=== PATIENT | female | born 1960 | race Caucasian/White ===

== ENCOUNTER 2023-09-01 15:11 | Emergency (ER) | payer MEDICAID, SELFPAY ==
--- NOTE | ~2023-09-01 | US_ITS ---
EXAMINATION: US VENOUS ULTRASOUND WITH DOPPLER LOWER EXTREMITY, BILATERAL CLINICAL INFORMATION: Pain COMPARISON: None available. TECHNIQUE: Ultrasound of the deep veins is performed from the hip to the calf with compression sonography and color and pulse Doppler assessment. Spectral analysis with color-flow imaging is performed. FINDINGS: RIGHT: There is normal venous compression and respiratory variation and augmented flow. The visualized common femoral vein, superficial femoral vein, profunda femoral vein, popliteal vein, and the trifurcation region shows no evidence of deep venous thrombosis. There is no significant popliteal fossa cyst. LEFT: There is normal venous compression and respiratory variation and augmented flow. The visualized common femoral vein, superficial femoral vein, profunda femoral vein, popliteal vein, and the trifurcation region shows no evidence of deep venous thrombosis. There is no significant popliteal fossa cyst. US/US venous duplex LE IMPRESSION: No DVT demonstrated in the lower extremity.
[2023-09-01 15:30] VITALS: BP 113/80; PULSE 77; RESP 18; TEMP 36.6; O2SAT 92; BMI 41.7
--- NOTE | 2023-09-01 15:30 | ED.GENADULT ---
HPI - General Adult General Chief complaint: Extremity Injury, Lower Stated complaint: home nurse suggested have calfs xrayed/blood clot? Time Seen by Provider: 09/01/23 17:19 Source: patient Mode of arrival: ambulatory Limitations: no limitations History of Present Illness ED Provider: Dr. Roopa Nicolas HPI narrative: Patient comes to the emergency room complaining of bilateral calf pain and swelling. Patient states that her visiting nurse asked her to come to the emergency room to rule out DVTs. Patient has no history of DVTs or PEs, patient does not take blood thinners. Patient denies chest pain or shortness of breath. No palpitations. Related Data Allergies Allergy/AdvReac Type Severity Reaction Status Date / Time No Known Allergies Allergy Verified 09/01/23 15:31 Review of Systems Review of Systems: Constitutional : No Weight loss, No Fever, No Chills, No Night Sweats, No Fatigue, No Malaise ENT/Mouth : No Hearing loss, No Ear Pain, No Nasal Congestion, No Sinus Pain, No Hoarseness, No sore throat, No Rhinorrhea, No Swallowing Difficulty Eyes: No Eye Pain, No Swelling, No Redness, No Foreign Body, No Discharge, No Vision Changes Cardiovascular : No Chest Pain, No SOB, No Dyspnea on Exertion, No Orthopnea, No Edema, No Palpitations Respiratory : No Cough, No Sputum, No Wheezing, No Smoke Exposure, No Dyspnea Gastrointestinal : No Nausea, No Vomiting, No Diarrhea, No Constipation, No abdominal Pain, No Hematochezia, No Melena Genitourinary : no irregular bleeding, No Dysuria, No Urinary Frequency, No Hematuria, No Urinary Incontinence, No Urgency, No Flank Pain, No Urinary Flow Changes, No Hesitancy Musculoskeletal : Complaining of bilateral calf pain and swelling Skin : No Skin Lesions, No rash Neuro : No Weakness, No Numbness, No Paresthesias, No Loss of Consciousness, No Dizziness, No Headache Psych : No Anxiety/Panic, No Depression, No SI/HI/AH/VH, No Social Issues, Heme/Lymph: No Bruising, No Bleeding,No Lymphadenopathy Endocrine : No Polyuria, No Polydipsia, No Temperature Intolerance PMFSH Social History Social History Advance Directives: No Advance Directives Information Provided: No Do you have a plan to hurt others: No Plan Physical Exam ED Vital Signs: Vital Signs - 24 hr 09/01/23 15:30 Temperature 97.8 F Pulse Rate 77 Respiratory Rate 18 Blood Pressure 113/80 Pulse Oximetry 92 Oxygen Delivery Method Room Air BMI result Body Mass Index 41.7 Const Other: Appearance: Alert. Oriented X3. No acute distress. Eyes: Pupils equal, round and reactive to light. ENT: Pharynx normal. Neck: Normal inspection. Neck supple. No lymph nodes noted. No crepitus CVS: Normal heart rate and rhythm. Pulses normal. Normal S1 and S2 Respiratory: No respiratory distress. Breath sounds normal. No Wheezing. No rales Abdomen: Soft and nontender. No rigidity. No distention. Skin: Skin warm and dry. Normal skin color. Normal skin turgor. Extremities: No lower extremity edema. Complaining of pain to palpation in both calves No Lacerations. No Rash Neuro: Oriented X 3. No motor deficit. No sensory deficit. Moving all extremities. No slurred speech. CN 2 through 12 grossly intact Psych: calm, cooperative, normal affect Course Course Course Narrative: RME performed by Marjan Howard PA-C. Patient is a 62 year old assigned female at presenting to the emergency department with bilateral lower leg swelling. Patient states that her visiting nurse saw her and recommended she get them imaged. Detailed physical exam and review of systems are deferred to the personal lines advisor. Labs and imaging ordered. Patient placed back in the waiting room pending room availability and results. Medical Decision Making Medical Decision Making [facility] Narrative: -on physical exam, patient's lower extremities are not swollen. -ultrasound negative for DVT. Patient likely having venous insufficiency, no pitting edema. Patient instructed to follow-up with her primary care physician. Differential Diagnosis Differential Diagnoses: The differential diagnosis associated with the presentation includes (Cramps, musculoskeletal pain, DVTs, venous insufficiency) Lab Data [facility] Lab Attestation statement: I reviewed the patient's lab results. 09/01/23 16:24 09/01/23 16:24 Labs: Lab Results 09/01/23 Range/Units 16:24 WBC 7.1 (4.8-10.8) X10*3/uL RBC 4.16 L (4.20-5.50) X10*6/uL Hgb 11.9 L (12.0-16.0) g/dl Hct 36.0 L (37.0-47.0) % MCV 86.5 (80.0-98.0) fL MCH 28.6 (27.0-33.0) pg MCHC 33.1 (31.0-35.0) g/dl RDW 14.0 (11.0-16.0) % Plt Count 277 (160-400) X10*3/uL MPV 9.1 L (9.4-12.3) fL Immature Gran % (Auto) 0.3 (0.0-0.4) % Neut % (Auto) 71.9 (45-73) % Lymph % (Auto) 16.7 L (20-40) % [place] % (Auto) 7.8 (2-11) % Eos % (Auto) 2.7 (0-4) % Baso % (Auto) 0.6 (0-2) % Lymph # (Auto) 1.2 (1.2-4.9) X10*3/uL [place] # (Auto) 0.6 (0.1-1.2) X10*3/uL Eos # (Auto) 0.2 (0.0-0.4) X10*3/uL Baso # (Auto) 0.0 (0.0-0.2) X10*3/uL Abs Immat Gran (auto) 0.02 (0.00-0.03) X10*3/uL Absolute Neuts (auto) 5.1 (2.0-8.3) x10*3/uL Absolute Nucleated RBC 0.000 (0.0-0.012) X10*3/uL Nucleated RBC % (auto) 0.0 (0.0-0.2) /100WBC ESR 13 (0-20) MM/HR PT 11.4 (11.1-13.3) SEC INR 0.9 (0.9-1.1) APTT 31.2 (26.0-36.8) SEC Sodium 143 (135-145) mmol/L Potassium 3.9 (3.3-5.1) mmol/L Chloride 108 (96-108) mmol/L Carbon Dioxide 28 (22-29) mmol/L Anion Gap 11 L (12-20) BUN 12 (9-16) mg/dL Creatinine 0.71 (0.5-1.4) mg/dL Estim Creat Clear Calc 91.5 Estimated GFR > 60 Random Glucose 87 (60-115) mg/dL Calcium 9.1 (8.4-10.2) mg/dL Total Bilirubin 0.2 (0.0-1.0) mg/dL AST 18 (5-31) U/L ALT 14 (0-31) U/L Alkaline Phosphatase 65 (39-117) U/L C-Reactive Protein 3.47 H (< or = 0.50) mg/dL B-Natriuretic Peptide 94 (<100) pg/mL Total Protein 6.6 (6.5-8.0) g/dL Albumin 4.0 (3.5-5.0) g/dL Independent Interpretation I performed an independent interpretation of an: Ultrasound Radiology Impression Discussion of test interpretation with radiology: I have reviewed the radiologist's reading. Radiologist Impression: FINDINGS: RIGHT: There is normal venous compression and respiratory variation and augmented flow. The visualized common femoral vein, superficial femoral vein, profunda femoral vein, popliteal vein, and the trifurcation region shows no evidence of deep venous thrombosis. There is no significant popliteal fossa cyst. LEFT: There is normal venous compression and respiratory variation and augmented flow. The visualized common femoral vein, superficial femoral vein, profunda femoral vein, popliteal vein, and the trifurcation region shows no evidence of deep venous thrombosis. There is no significant popliteal fossa cyst. US/US venous duplex LE BI IMPRESSION: No DVT demonstrated in the lower extremity. Discharge Plan Discharge Clinical Impression: Bilateral leg pain Patient Disposition: Home, Self-Care Instructions: Leg Pain (ED) Additional Instructions: Please follow-up with your primary care physician tomorrow. If you have any worsening or new symptoms, please return to the emergency room or call [phone] Print Language: [place]er
[2023-09-01 16:33] LABS: MANUAL DIFF FLAG NO
[2023-09-01 16:36] LABS: Basophils Percent Auto 0.6 % (0-2); Eosinophils Absolute Auto 0.2 X10*3/uL (0.0-0.4); Eosinophils Percent Auto 2.7 % (0-4); Hemoglobin 11.9 g/dl (12.0-16.0); Imm Gran Abs Auto 0.02 X10*3/uL (0.00-0.03); Imm Gran Pct Auto 0.3 % (0.0-0.4); Lymphocytes Absolute Auto 1.2 X10*3/uL (1.2-4.9); Lymphocytes Percent Auto 16.7 % (20-40); Mean Corpuscular HGB Conc 33.1 g/dl (31.0-35.0); Mean Corpuscular Hemoglobin 28.6 pg (27.0-33.0); Mean Corpuscular Volume 86.5 fL (80.0-98.0); Mean Platelet Volume 9.1 fL (9.4-12.3); Monocytes Absolute Auto 0.6 X10*3/uL (0.1-1.2); Monocytes Percent Auto 7.8 % (2-11); Neutrophils Absolute Auto 5.1 x10*3/uL (2.0-8.3); Neutrophils Percent Auto 71.9 % (45-73); Platelet Count 277 X10*3/uL (160-400); Red Blood Count 4.16 X10*6/uL (4.20-5.50); White Blood Count 7.1 X10*3/uL (4.8-10.8)
[2023-09-01 16:48] LABS: Alanine Aminotransferase 14 U/L (0-31); Alkaline Phosphatase 65 U/L (39-117); Anion Gap 11 (12-20); Aspartate Amino Transferase 18 U/L (5-31); Bilirubin Total 0.2 mg/dL (0.0-1.0); Blood Urea Nitrogen 12 mg/dL (9-16); C Reactive Protein 3.47 mg/dL (< or = 0.50); Calcium 9.1 mg/dL (8.4-10.2); Carbon Dioxide 28 mmol/L (22-29); Chloride 108 mmol/L (96-108); Creatinine Clr Calc Pharmacy 91.5; Estimated Glomerular Filt Rate > 60; Glucose Random 87 mg/dL (60-115); Potassium 3.9 mmol/L (3.3-5.1); Sodium 143 mmol/L (135-145); Total Protein 6.6 g/dL (6.5-8.0)
[2023-09-01 16:49] LABS: INTERNATIONAL NORM RATIO 0.9 (0.9-1.1); Prothrombin Time 11.4 SEC (11.1-13.3)
[2023-09-01 16:51] LABS: Partial Thromboplastin Time 31.2 SEC (26.0-36.8)
[2023-09-01 16:55] LABS: B Type Natriuretic Peptide 94 pg/mL (<100)
[2023-09-01 17:21] LABS: Erythrocyte Sedimentation Rate 13 MM/HR (0-20)
[2023-09-01 19:18] VITALS: BP 143/80; PULSE 69; RESP 16; TEMP 36.6; O2SAT 96
== END 2023-09-01 19:15 | disposition home or self-care (01) ==
PROVIDERS: Physician Assistant Medical; Emergency Provider Emergency Medicine; PCP Internal Medicine
DX: M79.605 Pain in left leg (principal); M79.604 Pain in right leg; M79.89 Other specified soft tissue disorders
CPT/HCPCS: 36415; 80053; 83880; 85025; 85610; 85652; 85730; 86140; 93970; 99284

== ENCOUNTER 2025-02-15 09:32 | Outpatient (REF) | payer MEDICAID, SELFPAY ==
[2025-02-15 09:52] LABS: MANUAL DIFF FLAG NO
[2025-02-15 10:14] LABS: Hematocrit 41.1 % (37.0-47.0); Hemoglobin 13.0 g/dl (12.0-16.0); Imm Gran Abs Auto 0.06 X10*3/uL (0.00-0.03); Imm Gran Pct Auto 0.6 % (0.0-0.4); Lymphocytes Absolute Auto 1.9 X10*3/uL (1.2-4.9); Mean Corpuscular HGB Conc 31.6 g/dl (31.0-35.0); Mean Corpuscular Hemoglobin 28.0 pg (27.0-33.0); Mean Corpuscular Volume 88.4 fL (80.0-98.0); NRBC Abs Auto 0.000 X10*3/uL (0.0-0.012); NRBC Pct Auto 0.0 /100WBC (0.0-0.2); Platelet Count 323 X10*3/uL (160-400); Red Blood Count 4.65 X10*6/uL (4.20-5.50); White Blood Count 9.2 X10*3/uL (4.8-10.8)
--- OUTSIDE RECORDS SUMMARY | 2025-02-15 10:46 | XMS_ITS | Clinical Summary ---
Author Organization [facility] Address [address] [place] [address] Phone Care Team Providers Care Supervisor Trust Accounts Name Role Phone Wolfgang Hopper MD Primary Care Provider Social History Tobacco Use Types Packs/Day Years Used Date Smoking Tobacco: Never Assessed Comments No Sex and Gender Information Value Date Recorded Sex Assigned at Not on file Legal Sex Female 1:18 PM EST Gender Identity Not on file Sexual Orientation Not on file Obstetrics History Para Term AB IAB SAB Ectopic Multiple Livin g Live Births 1 Last Filed Vital Signs Vital Sign Reading Time Taken Comments Blood Pressure - - Pulse - - Temperature - - Respiratory Rate - - Oxygen Saturation - - Inhaled Oxygen Concentration - - Weight 98.4 kg (217 lb) 05/10/2024 2:42 PM EST Height 157.5 cm (5' 2 ) 05/10/2024 2:42 PM EST Body Mass Index 39.69 05/10/2024 2:42 PM EST Plan of Treatment Health Maintenance Due Date Last Done Comments Colorectal Cancer Screening: Colonoscopy 1960 Cervical Cancer Screening: Pap Smear 11/29/1980 Pneumococcal Vaccine: 50+ Years (1 of 1 - PCV) 11/29/2009 Zoster Vaccines (1 of 2) 11/29/2009 Hepatitis C Screening 03/04/2022 Osteoporosis Screening (Bone Density Screening) 03/04/2022 Social Influencers of Health Screening 03/04/2022 Depression Screening 04/06/2024 Falls Risk Assessment 11/29/2024 COVID-19 Vaccine ( season) 2024 01/14/2024, 04/29/2022, 04/25/2021, Additional history exists Influenza Vaccine (#1) 2024 , 12/16/2022, 01/02/2022, Additional history exists Breast Cancer Screening 05/10/2026 05/10/19, 05/05/2023, 05/02/2022, Additional history exists DTaP,Tdap,and Td Vaccines (2 - Td or Tdap) 04/20/2030 04/20/2020 RSV Immunization Adult Patients (1 - 1-dose 75+ series) 11/29/2034 HIB Vaccines Aged Out No longer eligi ble based on patient's age to complete this topic HPV Vaccines Aged Out No longer eligi ble based on patient's age to complete this topic Hepatitis A Vaccines Aged Out No long er eligible based on patient's age to complete this topic Hepatitis B Vaccines Aged Out No long er eligible based on patient's age to complete this topic IPV Vaccines Aged Out No longer eligi ble based on patient's age to complete this topic MMR Vaccines Aged Out No longer eligi ble based on patient's age to complete this topic Meningococcal ACWY Vaccine Aged Out N o longer eligible based on patient's age to complete this topic Meningococcal B Vaccine Aged Out No l onger eligible based on patient's age to complete this topic RSV Immunization Patients Under 20 months Aged Out No longer eligible based on patient's age to complete this topic Varicella Vaccines Aged Out No longer eligible based on patient's age to complete this topic Procedures Procedure Name Priority Date/Time Associated Diagnosis Comments MG MAMMO DIGITAL SCREENING W ANDREW BILAT Routine 05/10/2024 2:49 PM EST Encounter for screening mammogram for breast cancer from Last 3 Months or Most Recently Relevant to Health Maintenance Results * MG Mammo Digital Screening w Andrew bilat (05/10/2024 2:49 PM EST) Anatomical Region Laterality Modality Breast Bilateral Mammography 05/10/2024 3:22 PM EST Impressions 05/10/2024 3:25 PM EST No evidence of breast malignancy. BI-RADS CATEGORY: 1 - NEGATIVE RECOMMENDATION: Screening bilateral mammogram is recommended in 1 year. Mammo Location: [facility], [address] [place] [address], [id number], . -------- FINAL REPORT -------- Dictated By: Elisabeth Calero Dictated Date: 05/10/2024 15:22 ET Assigned Physician: Elisabeth Calero Reviewed and Electronically Signed By: Elisabeth Calero Signed Date: 05/10/2024 15:25 ET Workstation ID: [id number] Transcribed By: Self Edit Transcribed Date: 05/10/2024 15:22 ET Narrative 05/10/2024 3:25 PM EST CLINICAL: 63 years old, Female, routine annual exam. COMPARISON: 05/05/2023, 05/02/2022, 03/07/2021 and 10/25/2018 TECHNIQUE: Bilateral MLO and CC views were obtained digitally with 3-D mammogram (digital breast tomosynthesis). Computer-aided detection was utilized in evaluation of this exam (CAD). FINDINGS: There is no evidence of suspicious mass or architectural distortion. No worrisome calcifications are evident. There has been no significant change from prior exam(s). BREAST DENSITY: A - The breasts are almost entirely fatty. Procedure Note Elisabeth Calero MD - 05/10/2024 CLINICAL: 63 years old, Female, routine annual exam. COMPARISON: 05/05/2023, 05/02/2022, 03/07/2021 and 10/25/2018 TECHNIQUE: Bilateral MLO and CC views were obtained digitally with 3-Dmammogram (digital breast tomosynthesis). Computer-aided detection wasutilized in evaluation of this exam (CAD). FINDINGS: There is no evidence of suspicious mass or architectural distortion. Noworrisome calcifications are evident. There has been no significantchange from prior exam(s). BREAST DENSITY: A - The breasts are almost entirely fatty. IMPRESSION: No evidence of breast malignancy. BI-RADS CATEGORY: 1 - NEGATIVE RECOMMENDATION: Screening bilateral mammogram is recommended in 1 year. Mammo Location: [facility], [address] [place] [address], [id number], . -------- FINAL REPORT -------- Dictated By: Elisabeth Calero Dictated Date: 05/10/2024 15:22 ET Assigned Physician: Elisabeth Calero Reviewed and Electronically Signed By: Elisabeth Calero Signed Date: 05/10/2024 15:25 ET Workstation ID: [id number] Transcribed By: Self Edit Transcribed Date: 05/10/2024 15:22 ET us Self Referral Sppl IMG BI PROCEDURES Final Resul t from Last 3 Months or Most Recently Relevant to Health Maintenance Insurance MEDICAID - [place] Care Teams Supervisor Trust Accounts Relationship Specialty Start Date End Date Wolfgang Hopper MD [address] [place] [id number] PCP - General Internal Medicine 05/10/24
[2025-02-15 10:57] LABS: Alanine Aminotransferase 27 U/L (0-31); Albumin Level 4.3 g/dL (3.5-5.0); Aspartate Amino Transferase 28 U/L (5-31); Estimated Glomerular Filt Rate > 60
== END 2025-02-15 09:33 | disposition home or self-care (01) ==
LOC: HO.LAB 09:32
PROVIDERS: PCP Internal Medicine; Visit Provider Internal Medicine Rheumatology
DX: M06.9 Rheumatoid arthritis, unspecified (principal); Z79.899 Other long term (current) drug therapy
CPT/HCPCS: 36415; 82040; 82565; 84450; 84460; 85025; 85652; 86140